=== PATIENT | female | born 1990 | race Caucasian/White ===

== ENCOUNTER → 2024-11-26 | Outpatient (CLI) | payer OTHER ==
[2024-11-26 20:33] LABS: Creatinine, Urine Random 57.3 mg/dL (27.00-270.00); Protein, Urine Random 13.8 mg/dL (0.0-11.9); Protein/Creat Ratio, Ur Random 0.2
== END ==
LOC: LAB 18:07 → LAB SHORT 18:07
PROVIDERS: Family Medicine
DX: O13.3 Gestational [pregnancy-induced] hypertension without significant proteinuria, third trimester (principal)
CPT/HCPCS: 82570; 84156

== ENCOUNTER → 2024-12-03 | Outpatient (CLI) | payer OTHER | LOC: LAB 18:10 → LAB SHORT 18:10 | DX: Z34.83 Encounter for supervision of other normal pregnancy, third trimester (principal); Z3A.36 36 weeks gestation of pregnancy | CPT/HCPCS: 87081; 87150 ==